=== PATIENT | male | born 1940 | race Caucasian/White ===

== ENCOUNTER → 2016-08-07 | Outpatient (CLI) | payer MEDICARE ==
--- NOTE | 2016-08-08 11:37 | ECHOCARDIOGRAPHY REPORT ---
PROCEDURE PHYSICIAN: ÓSCAR SEYMOUR DATE OF PROCEDURE: 08/07/2016 TWO DIMENSIONAL ECHOCARDIOGRAM REPORT PRIMARY PHYSICIAN: OTHER PHYSICIAN: REFERRING PHYSICIAN: Dr. Alejandro Sheppard ORDERING PHYSICIAN: INDICATION FOR THE PROCEDURE: Hypertension, dyspnea. MEASUREMENTS DERIVED VALUES LV DIAMETER (LAX) NORMALS NORMALS Diastolic 4.8 (3.6-5.2) Eject. Fract. 60% (60%+/-6%) Systolic (2.3-3.9) Diastolic Vol. % Shortening (0.22-0.42) Systolic Vol. Aortic Root IVS THICKNESS Diastolic 1.2 (0.6-1.1) LVPW THICKNESS Diastolic 1. (0.6-1.1) LA DIAMETER Systolic 3.8 (2.1-3.7) FINDINGS: 1. Technical quality is good. 2. The left ventricle is normal in size with normal contractility. Systolic function appeared to be normal. Estimated ejection fraction 60%. Diastolic dysfunction is suggested by Doppler. 3. The left atrium is in the upper normal limit in size. No clot or thrombus were seen within the left atrium. 4. The right atrium and right ventricle are normal in size. No clot or thrombus were seen within the right side. 5. Mitral valve is calcified with mild mitral regurgitation noted by color Doppler flow. No mitral valve prolapse. No mitral valve stenosis. 6. Aortic valve is trileaflet with normal opening and closing pattern. No significant aortic valve stenosis noted. Mild aortic regurgitation noted by color Doppler flow. 7. Tricuspid valve is normal in morphology with mild tricuspid regurgitation noted by color Doppler flow. Doppler across tricuspid valve estimated pulmonary artery pressure of 44+ right atrial pressure. 8. Pulmonic valve is functioning normally. 9. No pericardial effusion. CONCLUSION: 1. Normal left ventricular size and systolic function. Estimated ejection fraction 60%. Diastolic dysfunction is suggested by Doppler. 2. Mild mitral and tricuspid regurgitation. 3. Aortic valve sclerosis. No aortic stenosis. Mild aortic regurgitation. 4. Pulmonary hypertension with estimated pulmonary artery pressure of 50 mmHg. Job ID: [id number] Dictated Date: 08/07/2016 17:37:43 Adjunct Spanish Instructor Date: 08/08/2016 11:33:46 / christiano
== END ==
LOC: CARD 08:01
PROVIDERS: ATTEND Internal Medicine Cardiovascular Disease
DX: I10 Essential (primary) hypertension (principal); R06.02 Shortness of breath; R94.31 Abnormal electrocardiogram [ECG] [EKG]; R07.89 Other chest pain; Z82.79 Family history of other congenital malformations, deformations and chromosomal abnormalities
CPT/HCPCS: 93306

== ENCOUNTER → 2016-08-21 | Outpatient (CLI) | payer MEDICARE ==
[~2016-08-21] VITALS: Ht 170.2 cm; Wt 78.9 kg
[~2016-08-21] MED LIST: CATHETER FLUSH 10 ML SYR IV PRN; REGADENOSON 0.4 MG/5 ML SYR (LEXISCAN) IV ONE
--- OUTSIDE RECORDS SUMMARY | 2016-08-21 07:43 | XMS REPORT | Continuity of Care Document ---
Author Author [facility] Organization [facility] Address Unknown Phone Unavailable Allergies Active Description Code Type Severity Reaction Onset Reported/Identified Relationship to Patient Clinical Status Yes No Known Allergies [id number] Drug Allergy Unknown N/A 04/06/2015 Medications Problems Date Dx Coded Attending Type Code Diagnosis Diagnosed By 04/27/2015 MARY TAPIA MD Ot C61 05/24/2015 JACQUELINE RIVERA MD Ot C61 07/21/2015 MIGUEL GATES, JACQUELINE Abarca Ot C61 07/21/2015 JACQUELINE RIVERA MD Ot Z51.0 07/23/2015 JACQUELINE RIVERA MD Ot C61 09/10/2015 JACQUELINE RIVERA MD Ot C61 10/20/2015 JACQUELINE RIVERA MD Ot C61 MALIGNANT NEOPLASM OF PROSTATE 08/07/2016 ÓSCAR SEYMOUR MD Ot I10 ESSENTIAL (PRIMARY) HYPERTENSION 08/07/2016 ÓSCAR SEYMOUR MD Ot R06.02 SHORTNESS OF BREATH 08/07/2016 ÓSCAR SEYMOUR MD Ot R07.89 OTHER CHEST PAIN 08/07/2016 ÓSCAR SEYMOUR MD Ot R94.31 ABNORMAL ELECTROCARDIOGRAM [ECG] [EKG] 08/07/2016 ÓSCRA SEYMOUR MD Ot Z82.79 FAM HX OF CONGEN MALFORM, DEFORMATIONS A 08/08/2016 ÓSCAR SEYMOUR MD Ot I10 ESSENTIAL (PRIMARY) HYPERTENSION 08/08/2016 ÓSCAR SEYMOUR MD, Ot R06.02 SHORTNESS OF BREATH 08/08/2016 ÓSCAR SEYMOUR MD Ot R07.89 OTHER CHEST PAIN 08/08/2016 ÓSCAR SEYMOUR MD Ot R94.31 ABNORMAL ELECTROCARDIOGRAM [ECG] [EKG] 08/08/2016 ÓSCAR SEYMOUR MD, Ot Z82.79 FAM HX OF CONGEN MALFORM, DEFORMATIONS A Procedures Results Encounters ACCT No. Visit Date/Time Discharge Status Pt. Type Provider Facility Loc./Unit Complaint [id number] 09/16/2015 13:14:00 2015 00:01:00 DIS Outpatient JACQUELINE RIVERA MD [facility] ONC [id number] 04/06/2015 11:56:00 2014 23:59:59 CLS Outpatient MARY TAPIA MD [facility] CARD [id number] 08/21/2016 08:00:00 PEN Preadmit ÓSCAR SEYMOUR MD [facility] CARD HTN,SOB ON EXERTION [id number] 08/07/2016 08:01:00 ACT Outpatient ÓSCAR SEYMOUR MD [facility] CARD HTN,SOB ON EXERTION,ABNORMAL ECG [id number] 10/21/2015 00:09:00 PEN Preadmit JACQUELINE RIVERA MD [facility] ONC [id number] 07/21/2015 14:08:00 ACT Outpatient JACQUELINE RIVERA MD [facility] ONC
[2016-08-21 08:53] VITALS: BP 157/86
--- NOTE | 2016-08-21 12:20 | STRESS TEST ---
PROCEDURE PHYSICIAN: ÓSCAR SEYMOUR DATE OF PROCEDURE: 08/21/2016 LEXISCAN MYOVIEW STRESS TEST REPORT: REFERRING PHYSICIAN: Dr. Alejandro Sheppard BASELINE HEART RATE: 60 BASELINE BLOOD PRESSURE: 157/86 BASELINE EKG: Sinus rhythm with no ischemic changes. IN SUMMARY: The patient was injected with 10.56 mCi of technetium 99 Myoview and the resting images were obtained. Then the patient received 0.4 mg of Lexiscan followed by 32.6 mCi of technetium 99 Myoview. Throughout the test, there were no ischemic changes, no EKG changes. The resting and stress images were reviewed and compared in the short axis, horizontal long axis, and vertical long axis views. Review of the images showed diaphragmatic attenuation with typical male pattern. No significant ischemia or infarction on SPECT images. SSS is 0. TID value 0.9. On the gated images, the left ventricle appeared to be normal size with normal contractility. Calculated ejection fraction 61%. IN CONCLUSION: 1. The patient tolerated Lexiscan well. 2. No ischemia or infarction on SPECT images. 3. Normal left ventricular size with normal contractility. Calculated ejection fraction 61%. Job ID: [id number] Dictated Date: 08/21/2016 11:57:04 Food And Beverage Intern Date: 08/21/2016 12:18:31 / [email or web address]
== END ==
LOC: CARD 07:39
PROVIDERS: ATTEND Internal Medicine Cardiovascular Disease
DX: R07.89 Other chest pain (principal); I10 Essential (primary) hypertension; R06.02 Shortness of breath; R94.31 Abnormal electrocardiogram [ECG] [EKG]; Z82.49 Family history of ischemic heart disease and other diseases of the circulatory system
CPT/HCPCS: 78452; 93017

== ENCOUNTER → 2021-03-23 | Outpatient (CLI) | payer MEDICARE | LOC: CARD 13:31 | PROVIDERS: ATTEND Internal Medicine Cardiovascular Disease | DX: I11.9 Hypertensive heart disease without heart failure (principal); I35.1 Nonrheumatic aortic (valve) insufficiency; I25.10 Atherosclerotic heart disease of native coronary artery without angina pectoris | CPT/HCPCS: 93306 ==

== ENCOUNTER → 2021-05-09 | Outpatient (CLI) | payer MEDICARE ==
[2021-05-09 09:22] VITALS: BP 179/81
--- NOTE | 2021-05-09 11:12 | Cardiology Stress Test Report ---
Stress Test Report Date of Procedure/Referring: Date of Procedure: May 09, 2021 PCP Óscar Eckert MD Admitting Physician Alejandro Sheppard DO Indications: HTN Baseline Heart Rate: 83 Baseline Blood Pressure: Blood Pressure Systolic: 179 Blood Pressure Diastolic: 81 Baseline Vitals Vital Signs Date Time Temp Pulse Resp B/P (MAP) Pulse Ox O2 Delivery O2 Flow Rate FiO2 05/09/21 09:22 98 18 179/81 (113) 97 Room Air Baseline EKG: Baseline EKG: NSR Summary After explaining the procedure to the patient, he signed a consent and then brought to the stress nuclear laboratory. Patient received 0.4 mg Lexiscan for stress test, ECG, heart rate and blood pressure were monitored continuously. Resting and stress dose of radio tracer were injected, imaging was acquired and reviewed in short axis, horizontal long axis and vertical long axis views. TID: 0.89 SSS: 4 SDS: 4 EF: 65 1. Patient tolerated Lexiscan well 2. Diaphragmatic attenuation, there is no significant ischemia or infarction on SPECT images 3. Normal left ventricular size, EF 65% ÓSCAR ECKERT MD May 09, 2021 11:12
== END ==
LOC: CARD 08:30
PROVIDERS: ATTEND Internal Medicine Cardiovascular Disease
DX: I10 Essential (primary) hypertension (principal); I25.10 Atherosclerotic heart disease of native coronary artery without angina pectoris
CPT/HCPCS: 78452; 93017; A9502